=== PATIENT | female | born 1970 | race African-American/Black ===

== ENCOUNTER 2023-02-22 10:09 | Inpatient (IN) | payer MEDICAID ==
[~2023-02-22] VITALS: Ht 152.4 cm; Wt 47.8 kg
[2023-02-22] VITALS (9 sets, daily range): BP systolic 109–144; BP diastolic 68–86; PULSE 79–89; RESP 13–22; TEMP 97.8–98.8; O2SAT 100
[2023-02-22] MEDS ORDERED: PANTOPRAZOLE 40 MG/10 ML VIAL INJ IV ONE (10:45)
[2023-02-22 10:51] LABS: Eosinophils # (auto) 0 10 ^3/uL (0-0.8); Monocytes # (auto) 0.5 10 ^3/uL (0-1.3)
[2023-02-22 10:54] LABS: Basophils # (auto) 0 10 ^3/uL (0-0.2); Basophils % (auto) 0.6 % (0.0-2.0); Eosinophils % (auto) 0.4 % (0.0-7.0); Hematocrit 14.2 % (36.0-46.0); Lymphocytes # (auto) 3.5 10 ^3/uL (0.4-5.4); Lymphocytes % (auto) 46.5 % (10.0-50.0); Mean Corpuscular Hemoglobin 27.1 pg (28.0-32.0); Mean Corpuscular Hgb Conc. 32.7 g/dL (32.0-36.0); Monocytes % (auto) 7.1 % (0.0-12.0); Neutrophils # (auto) 3.4 10 ^3/uL (1.6-8.6); Neutrophils % (auto) 45.4 % (37.0-80.0); Nucleated Red Blood Cells % 0.4 %; Red Blood Cells 1.71 10^6/uL (4.0-5.20); White Blood Cell 7.5 10^3/uL (4.4-10.8)
[2023-02-22 11:12] LABS: BUN/Creatinine Ratio 18.9 (10.0-20.0); Calcium 7.9 mg/dL (8.5-10.1); Potassium 3.8 mmol/L (3.5-5.1)
[2023-02-22 11:14] LABS: Total Protein 6.4 g/dL (6.4-8.2)
[2023-02-22 12:15] LABS: Red Cell Distribution Width 22.2 % (11.8-14.3)
[2023-02-22 12:18] LABS: Hemoglobin 4.6 g/dL (12.2-16.2)
[2023-02-22] MEDS ORDERED: LACTATED RINGER'S 1,000 ML IV ONE (13:15)
[2023-02-22] MEDS ORDERED: NITROGLYCERIN 0.4 MG SL TAB SL PRN (13:15)
[2023-02-22 13:52] LABS: % Iron Saturation 17.5 % (15-50)
[2023-02-22 14:11] LABS: Ferritin 147.1 ng/mL (10-322)
[2023-02-22 14:12] LABS: Folate (Folic Acid) 11.89 ng/mL (5.38-24)
[2023-02-22 14:24] LABS: Hepatitis B Surface Antibody Negative (Negative)
[2023-02-22 15:03] LABS: Hepatitis A Total Antibody Positive (Negative)
[2023-02-22] MEDS: D5W/SOD CHL 0.45% 1,000 ML IV SCH (15:11)
[2023-02-22] MEDS: MORPHINE SULFATE INJ 2 MG/ml SYRG IV PRN ×2 (15:11→20:07)
[2023-02-22 15:28] LABS: White Blood Cell 6.5 10^3/uL (4.4-10.8)
[2023-02-22 15:33] LABS: Hematocrit 12.8 % (36.0-46.0); Mean Corpuscular Hemoglobin 26.4 pg (28.0-32.0); Mean Corpuscular Hgb Conc. 31.2 g/dL (32.0-36.0); Mean Corpuscular Volume 84.5 fL (80.0-100.0); Red Blood Cells 1.51 10^6/uL (4.0-5.20); Red Cell Distribution Width 22.7 % (11.8-14.3)
[2023-02-22 15:36] LABS: Band Neutrophils % (manual) 0; Basophils % (manual) 0 (0.0-2.0); Blast Cells 0; Eosinophils % (manual) 0 (0-7); Metamyelocytes % 0; Myelocytes % 0; Promyelocytes % 0; Reactive Lymphocytes 0
[2023-02-22 15:50] LABS: INR 2.08 (0.9-1.15); Partial Thromboplastin Time 29.5 SEC (24.5-34.5); Prothrombin Time 20.8 sec (9.3-11.8)
[2023-02-22 16:28] LABS: Lymphocytes % (manual) 10 (10.0-50.0); Monocytes % (manual) 4 (0-12)
[2023-02-22 16:29] LABS: Hypochromia Moderate; Platelet Estimate Decreased; Stomatocytes Few; Target Cell FEW
[2023-02-22] MEDS ORDERED: OCTREOTIDE ACETATE 100 MCG in SODIUM CHL 0.9% 50 ML IV ONE (17:00)
[2023-02-22] MEDS ORDERED: cefTRIAXone 1GM/50ML D5W 50 ML IV ONE (17:00)
[2023-02-22] MEDS: PANTOPRAZOLE 40mg/50ML NS AE 50 ML IV SCH ×2 (17:21→21:34)
[2023-02-22 17:56] LABS: Alcohol, Urine < 3.0 mg/dL (0-10); Amphetamine Screen, Urine NEGATIVE (NEGATIVE); Barbiturate Scree,Urine NEGATIVE (NEGATIVE); Benzodiazephine Screen, Urine NEGATIVE (NEGATIVE); Cannabinoid Screen, Urine POSITIVE (NEGATIVE); Cocaine Screen, Urine NEGATIVE (NEGATIVE); Phencyclidine Screen, Urine NEGATIVE (NEGATIVE); Urine Bacteria NONE SEEN /hpf (None Seen); Urine Blood Negative /uL (Negative); Urine Clarity Clear (Clear); Urine Color Yellow (Yellow); Urine Protein, UAD Negative (Negative); Urine Specific Gravity 1.011 (1.001-1.035); Urine WBC <1 /hpf (0 - 5); Urine pH 7.5 (5.0-8.0)
[2023-02-22 18:05] LABS: Opiate Scree,Urine NEGATIVE (NEGATIVE)
[2023-02-22 18:11] LABS: Hepatitis B Core Total AB Negative (Negative); Hepatitis B Surface Antigen Negative (Negative); Hepatitis C Antibody Negative (Negative)
[2023-02-22] MEDS: OCTREOTIDE ACETATE 500 MCG in SODIUM CHL 0.9% 99 ML IV SCH (21:25)
[2023-02-22] MEDS ORDERED: IOHEXOL 350 MG/ML 100ML IJ ONE (21:30)
[2023-02-22] MEDS: metroNIDAZOLE 500MG/100ML 100 ML IV SCH (21:35)
[2023-02-22] MEDS ORDERED: CEFEPIME 1GM/ 50ML 50 ML IV SCH (22:00)
[2023-02-23] MEDS ORDERED: HYDR-4902 PO (00:33)
[2023-02-23] MEDS ORDERED: ALBU108A5 INH (00:33)
[2023-02-23] MEDS ORDERED: ZOLP10TA PO (00:34)
[2023-02-23 01:12] LABS: Hematocrit 26.8 % (36.0-46.0)
[2023-02-23] MEDS: D5W/SOD CHL 0.45% 1,000 ML IV SCH ×2 (01:18→11:16)
[2023-02-23] MEDS: PANTOPRAZOLE 40mg/50ML NS AE 50 ML IV SCH ×2 (01:50→09:25)
[2023-02-23 05:00] VITALS: BP 138/93; PULSE 91; RESP 16; TEMP 98.3; O2SAT 97
[2023-02-23] MEDS: OCTREOTIDE ACETATE 500 MCG in SODIUM CHL 0.9% 99 ML IV SCH (05:08)
[2023-02-23 07:40] LABS: Albumin 2.7 g/dL (3.4-5.0); Anion Gap 12 (5-15); Blood Urea Nitrogen 20 mg/dL (7-18); Calcium 7.4 mg/dL (8.5-10.1); Carbon Dioxide 20 mmol/L (21-32); Chloride 100 mmol/L (98-107); Glucose 186 mg/dL (74-106); Potassium 3.7 mmol/L (3.5-5.1); Sodium 132 mmol/L (136-145)
[2023-02-23 07:45] LABS: Alanine Aminotransferase 162 U/L (13-56); Alkaline Phosphatase 222 U/L (45-117); Aspartate Aminotransferase 867 U/L (15-37); BUN/Creatinine Ratio 17.2 (10.0-20.0); Bilirubin, Total 3.3 mg/dL (0.2-1.0); Blood Alcohol < 3.0 mg/dL (<10); GFR African American 63 mL/min; GFR Non-African American 52 mL/min; Total Protein 5.8 g/dL (6.4-8.2)
[2023-02-23 08:00] VITALS: PULSE 104
[2023-02-23 09:00] VITALS: BP 129/82; PULSE 106; RESP 16; TEMP 98.7; O2SAT 98
[2023-02-23] MEDS ORDERED: cefTRIAXone 1GM/50ML D5W 50 ML IV SCH (09:00)
[2023-02-23] MEDS ORDERED: PANTOPRAZOLE 40 MG/10 ML VIAL INJ IV SCH (10:00)
[2023-02-23] MEDS: metroNIDAZOLE 500MG/100ML 100 ML IV SCH (11:14)
[2023-02-23 12:33] VITALS: BP 125/79; PULSE 89; RESP 15; TEMP 98.6; O2SAT 98
[2023-02-23] MEDS: MORPHINE SULFATE INJ 2 MG/ml SYRG IV PRN (12:33)
[2023-02-23 13:03] VITALS: BP 125/79; PULSE 89; RESP 15
== END 2023-02-23 18:27 | disposition left against medical advice (07) | DRG 242 ==
LOC: ER 10:09 → TELE 13:20 → TELE-EAST 22:50
PROVIDERS: ADMIT Internal Medicine; ATTEND Internal Medicine
PROC: 30233N1 Transfusion of Nonautologous Red Blood Cells into Peripheral Vein, Percutaneous Approach (ICD-10-PCS; principal; 2023-02-22)
DX: I85.01 Esophageal varices with bleeding (principal); N17.0 Acute kidney failure with tubular necrosis; E44.0 Moderate protein-calorie malnutrition; K81.9 Cholecystitis, unspecified; E87.1 Hypo-osmolality and hyponatremia; K70.9 Alcoholic liver disease, unspecified; K76.0 Fatty (change of) liver, not elsewhere classified; D64.9 Anemia, unspecified; F10.10 Alcohol abuse, uncomplicated; K86.1 Other chronic pancreatitis; F17.210 Nicotine dependence, cigarettes, uncomplicated; Z53.29 Procedure and treatment not carried out because of patient's decision for other reasons; J45.909 Unspecified asthma, uncomplicated; I10 Essential (primary) hypertension; Z87.11 Personal history of peptic ulcer disease; Z88.0 Allergy status to penicillin; Z83.3 Family history of diabetes mellitus; Z68.20 Body mass index [BMI] 20.0-20.9, adult; Z71.41 Alcohol abuse counseling and surveillance of alcoholic
CPT/HCPCS: 36415; 71045; 74177; 76705; 78226; 80053; 80307; 80320; 81001; 82140; 82270; 82607; 82728; 82746; 83036; 83540; 83550; 83615; 83690; 84443; 84484; 85007; 85014; 85018; 85025; 85027; 85045; 85384; 85610; 85730; 86704; 86706; 86708; 86803; 86850; 86900; 86901; 86920; 87340; 93005; 96361; 96365; 96375; 99291; C9113; G0378; J0696; J3490